=== PATIENT | male | born 1950 | race Caucasian/White ===

== ENCOUNTER → 2016-08-20 | Day surgery (SDC) | payer MEDICARE, MEDICAID ==
[~2016-08-20] MED LIST: 8 HOUR650 MG FT; ASPIR-TRIN325 MG; DEPAKENE250 MG/5 M PO; DILANTIN100 MG FT; DULCOLAX10 MG R; FLEET ENEMA133 ML; GABAPENTIN250 MG/5 M; HALDOL5 MG FT; HYDROCORT 1% OI30 GM TOP; JEVITY 1.51 CAN FT; KCL UD LIQ20 MEQ/15 FT; KEPPRA LIQU100 MG/ML FT; KLONOPIN0.5 MG FT; KLONOPIN1 MG; LACTINEX (FLORA1 TAB FT; LEVOTHROID(SYN75 MCG FT; MAGNESIUM400 MG FT; MILK OF MA400 MG/5 M FT; MIRALAX17 GM PO; MULTIPLE VITAM1 EACH FT; ROBITUSSIN100 MG/5 M FT; SENNA8.6 MG FT; SEROQUEL50 MG FT; WATER PO; ZANTAC150 MG PO; ZOLPIDEM TARTRAT5 MG PO
--- NOTE | ~2016-08-20 | OR ---
PATIENT'S NAME: SUSY LARES [place] AGE: 66 Y [address] ROOM: [place] [address] LOCATION: [facility] [place] ADMIT DATE: 08/20/2016 OR/Procedure Report DISCHARGE DATE: FAMILY PHYSICIAN: Vicki Rucker MD ATTENDING PHYSICIAN: Vinnie Matta SURGEON: Vinnie Matta MD CHARGE ACCOUNT CLERK: DATE OF PROCEDURE: 08/20/2016 PREOPERATIVE DIAGNOSIS: Need for gastrostomy tube for enteral access. POSTOPERATIVE DIAGNOSIS: Need for gastrostomy tube for enteral access. PROCEDURE: EGD with PEG tube. FINDINGS: The PEG tube appeared to be in good position at 4 cm from the skin. ESTIMATED BLOOD LOSS: Minimal. COMPLICATIONS: None. INDICATIONS: The patient is a alf patient who uses enteral access, mainly for medication use. He had had his PEG tube pulled, this was not replaced in a timely fashion and then could not be replaced. We attempted replacement in the emergency department, but could not succeed. Because of this, EGD with PEG tube was required. We discussed this with the patient's power of attorney lawyer the risks, benefits, and alternatives, and they elected to proceed. DESCRIPTION OF PROCEDURE: The patient was taken to Endoscopy Suite, placed in a left lateral decubitus position, given sedation by Anesthesia. A bite block was positioned. Flexible endoscope was inserted in the esophageal lumen, advanced through the esophagus down to the GE junction and into the stomach. We were able to advance the introducer sheath through his old PEG tube site and into the gastric lumen. A wire access was then obtained. The snare was placed through the flexible endoscope. The wire was retrieved. The wire, flexible endoscope, and snare were all removed through the mouth. The PEG tube was then inserted over the wire. The wire, PEG tube, and flexible endoscope were then all pulled back into the gastric lumen. The snare was released and removed. The wire was removed. A rubber bumper was placed onto the PEG tube and appeared to be in good position at 3 cm at the skin. The operative field was inspected, it appeared hemostatic. The flexible endoscope was then withdrawn. The patient tolerated the procedure well. PATIENT'S NAME: SUSY LARES [place] AGE: 66 Y [address] ROOM: [place], [place] [address] LOCATION: [facility] [place] ADMIT DATE: 08/20/2016 OR/Procedure Report DISCHARGE DATE: FAMILY PHYSICIAN: Vicki Rucker MD ATTENDING PHYSICIAN: Vinnie Matta VINNIE MATTA MD BJO/modl /[id number] d: 08/23/162000 t: 08/31/16 1658, OPERATIVE SUMMARY
--- NOTE | ~2016-08-20 | HP ---
PATIENT'S NAME: SUSY LARES [facility] AGE: 66 Y [address] ROOM: [place] [address] LOCATION: [facility] ADMIT DATE: 08/20/2016 History & Physical DISCHARGE DATE: FAMILY PHYSICIAN: Vicki Rucker MD ATTENDING PHYSICIAN: Jeanette Ambrosio DATE OF SERVICE: CHIEF COMPLAINT: PEG tube fell out. HISTORY OF PRESENT ILLNESS: The patient is a 66-year-old male who lives in a retirement in [place]. He is a nonambulatory, wheelchair-bound patient. He does converse. There is very minimal history that was sent with him, and the nurse who is with him really does not know his history either. His feeding tube apparently fell out early in the week. Because he does not travel well, they elected to place a Palacio catheter. This also fell out. Now, they are calling because there were unable to get another catheter in. On arrival, the patient is alert. There is very limited conversation, but he does say short phrases quite slowly. ALLERGIES: LEVAQUIN AND AUGMENTIN. CURRENT ILLNESSES: Include hypothyroidism, shortness of breath, diarrhea, nutritional deficiencies, hypokalemia, schizophrenia, bipolar, manic episodes, history of pressure ulcerations, venous embolism, venous insufficiency, and history of acute pulmonary edema. MEDICATIONS: Reviewed, please see retirement chart for complete list. PHYSICAL EXAMINATION: GENERAL: He is a 66-year-old male who is somewhat uncooperative during attempts at tube placement. His abdomen is soft and nontender. HEENT: He has poor dentition. HEART: Regular rate and rhythm. LUNGS: Clear. ABDOMEN: Reveals the area of previous PEG tube, this appears as though it has been present for some time. EXTREMITIES: Significant deformity with edema and changes of venous insufficiency. ASSESSMENT: PATIENT'S NAME: SUSY LARES [facility] AGE: 66 Y [address] ROOM: [place] [address] LOCATION: [facility] ADMIT DATE: 08/20/2016 History & Physical DISCHARGE DATE: FAMILY PHYSICIAN: Vicki Rucker MD ATTENDING PHYSICIAN: Jeanette Ambrosio Status post accidental PEG tube removal. PLAN: In the emergency room, we attempted multiple times replacement of PEG tube. We could not get a Palacio catheter of adequate size through the hole either. Because of this, the patient will need EGD with PEG if they want to continue with feeding. More than an hour was spent in direct patient care in attempts at replacement of the tube, which was unsuccessful. We will discuss sedation with EGD and PEG tube with the patient's power of divorce attorney and discuss the risks, benefits, and alternatives. MD NIK ROSARIO/sydni /[id number] D: [id number] T: 455 HISTORY & PHYSICAL
== END | disposition disaster alternative care site (69) ==
LOC: GMED 13:02 → GSDC 14:48
PROC: 0DH63UZ Insertion of Feeding Device into Stomach, Percutaneous Approach (ICD-10-PCS; principal; 2016-08-20)
DX: K94.23 Gastrostomy malfunction (principal); E03.9 Hypothyroidism, unspecified; F30.9 Manic episode, unspecified; F20.9 Schizophrenia, unspecified; I87.2 Venous insufficiency (chronic) (peripheral); Z87.2 Personal history of diseases of the skin and subcutaneous tissue; Z88.1 Allergy status to other antibiotic agents
CPT/HCPCS: J7120